=== PATIENT | female | born 1985 | race Caucasian/White ===

== ENCOUNTER → 2017-01-31 | Outpatient (CLI) | payer BC ==
--- NOTE | 2017-01-31 13:22 | KCIC ---
Ultrasound pelvis with transvaginal Indication: Right-sided pelvic pain. Transabdominal and transvaginal pelvic sonography was performed. The uterus measures 8.5 x 4.0 x 5.3 centimeters. The endometrium is 5 millimeters in thickness. There are small cervical nabothian cysts present. No other uterine mass is identified. The right ovary measures 3.1 x 2.2 x 3.4 centimeters and the left ovary measures 3.5 x 2.5 x 2.7 centimeters. There is blood flow to both ovaries. No adnexal mass or free fluid is identified. Impression: Unremarkable transabdominal and transvaginal pelvic ultrasound. Electronically signed by: Milton Rae MD (Jan 31, 2017 13:21:06)
== END | disposition home or self-care (01) ==
LOC: KCIC US 10:37
PROVIDERS: ATTEND Obstetrics & Gynecology
DX: R10.2 Pelvic and perineal pain (principal)
CPT/HCPCS: 76830; 76856

== ENCOUNTER 2020-03-09 14:47 | Inpatient (IN) | payer BC ==
[~2020-03-09] VITALS: Ht 172.7 cm; Wt 118.0 kg
--- NOTE | 2020-03-09 15:12 | PHYS DOC ---
General Adult EDM: Chief Complaint: CELLULITIS HPI: HPI: Patient is a 34 year old female who presented to ER today for evaluation of a wound on her abdominal area seen since 5 days ago. Patient denies any nausea vomiting, no fever. Patient denies being bitten by anything. Patient denies any history of diabetes, no history of hypertension. Review of Systems: Review of Systems: Constitutional: Denies fever or chills. [] Eyes: Denies change in visual acuity. [] HENT: Denies nasal congestion or sore throat. [] Respiratory: Denies cough or shortness of breath. [] Cardiovascular: Denies chest pain or edema. [] GI: Denies abdominal pain, nausea, vomiting, bloody stools or diarrhea. [] : Denies dysuria. [] Musculoskeletal: Denies back pain or joint pain. [] Integument: Positive for a wound on right side abdomen Neurologic: Denies headache, focal weakness or sensory changes. [] Endocrine: Denies polyuria or polydipsia. [] Lymphatic: Denies swollen glands. [] Psychiatric: Denies depression or anxiety. [] Heart Score: Risk Factors: Risk Factors: DM, Current or recent (<one month) smoker, HTN, HLP, family history of CAD, obesity. Risk Scores: Score 0 - 3: 2.5% MACE over next 6 weeks - Discharge Home Score 4 - 6: 20.3% MACE over next 6 weeks - Admit for Clinical Observation Score 7 - 10: 72.7% MACE over next 6 weeks - Early Invasive Strategies Allergies: Allergies: Allergies Coded Allergies Type Severity Reaction Last Updated Verified No Known Drug Allergies 03/09/20 No Physical Exam: PE: Constitutional: Well developed, well nourished, no acute distress, non-toxic appearance. [] HENT: Normocephalic, atraumatic, bilateral external ears normal, oropharynx moist, no oral exudates, nose normal. [] Eyes: PERRLA, EOMI, conjunctiva normal, no discharge. [] Neck: Normal range of motion, no tenderness, supple, no stridor. [] Cardiovascular:Heart rate regular rhythm, no murmur [] Lungs & Thorax: Bilateral breath sounds clear to auscultation [] Abdomen: Bowel sounds normal, soft, no tenderness, no masses, no pulsatile masses. [] Skin: Warm, dry, 13 CM BY 12 CM INDURATED, ERYTHEMATOUS LESION ON RIGHT MIDDLE ABDOMINAL WALL AREA WITH CENTRAL OPENING WITH PURULENT DRAINAGE. Back: No tenderness, no CVA tenderness. [] Extremities: No tenderness, no cyanosis, no clubbing, ROM intact, no edema. [] Neurologic: Alert and oriented X 3, normal motor function, normal sensory func tion, no focal deficits noted. [] Psychologic: Affect normal, judgement normal, mood normal. [] EKG: EKG: [] Radiology/Procedures: Radiology/Procedures: [] Course & Med Decision Making: Course & Med Decision Making Pertinent Labs and Imaging studies reviewed. (See chart for details) [] Dragon Disclaimer: Dragon Disclaimer: This electronic medical record was generated, in whole or in part, using a voice recognition dictation system. Departure Departure Impression: Primary Impression: Abdominal abscess Additional Impression: Cellulitis Disposition: ADMITTED INPATIENT Admitting Physician: GABI (DR. BRANTLEY) Condition: STABLE Referrals: NO PCP (PCP) ARMIN FITCH DO Mar 09, 2020 15:12
[2020-03-09 15:15] LABS: BASO % 1 % (0-3); EOS # 0.1 x10^3/uL (0.0-0.7); EOS % 1 % (0-3); HEMATOCRIT 38.8 % (36.0-47.0); HEMOGLOBIN 13.2 g/dL (12.0-15.5); LYMPH # 1.3 x10^3/uL (1.0-4.8); LYMPH % 13 % (24-48); MEAN CORPUSCULAR HEMOGLOBIN 26 pg (25-35); MEAN CORPUSCULAR HGB CONC 34 g/dL (31-37); MEAN CORPUSCULAR VOLUME 76 fL (79-100); MONO # 0.6 x10^3/uL (0.0-1.1); MONO % 6 % (0-9); NEUT # 7.8 x10^3/uL (1.8-7.7); NEUT % 79 % (31-73); PLATELET COUNT 316 x10^3/uL (140-400); RED BLOOD COUNT 5.09 x10^6/uL (3.50-5.40); RED CELL DISTRIBUTION WIDTH 15.3 % (11.5-14.5); WHITE BLOOD COUNT 9.9 x10^3/uL (4.0-11.0)
[2020-03-09 15:27] LABS: CALCIUM 8.9 mg/dL (8.5-10.1); CREATININE 0.8 mg/dL (0.6-1.0); GFR 82.1; POTASSIUM 3.8 mmol/L (3.5-5.1)
[2020-03-09 15:29] LABS: ALBUMIN 3.2 g/dL (3.4-5.0); ALBUMIN/GLOBULIN RATIO 0.7 (1.0-1.7); TOTAL BILIRUBIN 0.3 mg/dL (0.2-1.0); TOTAL PROTEIN 8.1 g/dL (6.4-8.2)
[2020-03-09] MEDS ORDERED: PIP/TAZO PER PHARMACY MC PRN (15:30)
[2020-03-09 15:37] LABS: BILIRUBIN,URINE SMALL (NEG); CLARITY,URINE CLOUDY; COLOR,URINE AMBER; NITRITE,URINE NEGATIVE (NEG); PH,URINE 8.5 (<5.0-8.0); PROTEIN,URINE 100 mg/dL (NEG-TRACE)
[2020-03-09 15:45] LABS: SQUAMOUS EPITHELIAL CELL,UR MANY /LPF
[2020-03-09] MEDS ORDERED: PIPERACILLIN/TAZOBACTAM 3.375 GM in IV NORMAL SALINE 50ML 50 ML IV ONE (15:45)
[2020-03-09 15:46] LABS: BACTERIA,URINE FEW /HPF (0-FEW)
[2020-03-09 15:47] LABS: AMORPHOUS SEDIMENT,UR PRESENT /HPF; RBC,URINE OCC /HPF (0-2)
[2020-03-09] MEDS ORDERED: VANCOMYCIN 2 GM in IV NORMAL SALINE 500ML BAG 500 ML IV ONE (16:00)
[2020-03-09] MEDS: ONDANSETRON PF 4 MG/2 ML VIAL. IV PRN (16:17)
[2020-03-09] MEDS: MORPHINE SULFATE 4 MG/ML VIAL. IV PRN ×2 (16:18→23:37)
[2020-03-09] MEDS: VANCOMYCIN PER PHARMACY MC PRN (16:38)
--- NOTE | 2020-03-09 16:48 | NUR ---
Pharmacy Vancomycin Dosing Note S:Consulted to monitor and dose vancomycin started 03/09/20. O:DAMARIS MONTIEL is a 34 year old F with Abscess . Height: 5 feet, 8 inches Weight: 117.7 kg [place] Body Weight: 63.90 Adjusted Body Weight: 85.42 Dosing Weight: Actual Other Antibiotics: Zosyn 3.375gm IVPB q6hrs LABS: Last BUN: 12 Last Creatinine: 0.8 Creatinine Clearance: 133.6 mL/min Last WBC: 9.9 Last Procalcitonin: Tmax (past 24 hours): 99.5 Microbiology: I/O: Drug Levels: Last level: on at Last dose given 03/09/20 at 1543 Vancomycin Dosing: Loading Dose: 2000 mg x1 Dosing Weight: Actual Target Trough: A: Based on weight and CrCl: P: 1. Vancomycin 2000mg, followed by Vancomycin 1500 mg IV q8h. 2. Follow up Trough level on 03/09/20 at 1530. 3. Pharmacy will continue to monitor, follow and adjust therapy as needed. Yair Alejo [facility], 03/09/20 [id number]
[2020-03-09 17:00] VITALS: BP 173/105
[2020-03-09] MEDS ORDERED: NORG1TAB6 PO (17:57)
--- NOTE | 2020-03-09 18:00 | NUR ---
Pt arrived on unit at approx 1645 by wheelchair. Pt up in bed, rating pain at a 6 in the lower abdomen. Vancomycin currently running. Regular food tray ordered. Will assume care of this pt and monitor closely.
--- NOTE | 2020-03-09 18:10 | NUR ---
Per ANASTASIYA Claros in ER, culture of pt's abdominal abscess was collected in the ER. This RN collected specimen in the computer.
--- NOTE | 2020-03-09 18:42 | NUR ---
Pt's BP 173/105 upon admission. This RN paged Dr. Tello. Awaiting orders.
[2020-03-09 19:00] VITALS: BP 180/108
[2020-03-09] MEDS: amLODIPine BESYLATE 10 MG TABLET PO SCH (21:05)
[2020-03-09 23:00] VITALS: BP 154/81
[2020-03-09] MEDS: PIPERACILLIN/TAZOBACTAM 3.375 GM in IV NORMAL SALINE 50ML 50 ML IV SCH (23:32)
--- NOTE | 2020-03-09 23:53 | HP ---
ADMIT DATE: 03/09/2020 CHIEF COMPLAINT: Abdominal wall abscess. HISTORY OF PRESENT ILLNESS: The patient is a pleasant 34-year-old female who presented with a right sided abdominal wall abscess. I discussed the case with ER physician. We are going to admit the patient and consult the wound care team. PAST MEDICAL HISTORY: Benign. ALLERGIES: None. FAMILY HISTORY: Diabetes. SOCIAL HISTORY: She does not drink, smoke or take drugs. She is a [id number] mom. MEDICATIONS: Reviewed, please refer to the MRAD. REVIEW OF SYSTEMS: GENERAL: No history of weight change, weakness or fevers. SKIN: No bruising, hair changes or rashes. EYES: No blurred, double or loss of vision. NOSE AND THROAT: No history of nosebleeds, hoarseness or sore throat. HEART: No history of palpitations, chest pain or shortness of breath on exertion. LUNGS: Denies cough, hemoptysis, wheezing or shortness of breath. GASTROINTESTINAL: The patient complains of abdominal wall abscess. GENITOURINARY: No history of frequency, urgency, hesitancy or nocturia. NEUROLOGIC: Denies history of numbness, tingling, tremor or weakness. PSYCHIATRIC: No history of panic, anxiety or depression. ENDOCRINE: No history of heat or cold intolerance, polyuria or polydipsia. EXTREMITIES: Denies muscle weakness, joint pain, pain on walking or stiffness. PHYSICAL EXAMINATION: VITALS: Within normal limits and are stable. GENERAL: No apparent distress. Alert and oriented. HEENT: Normal cephalic atraumatic, external auditory canals are patent EYES: Extraocular muscles are intact, pupils are equally round and reactive to light and accommodation MUSCULOSKELETAL: Well developed, well nourished, good range of motion ENDOCRINE: No thyromegaly was palpated LYMPHATICS: No cervical chain or axillary nodes were noted HEMATOPOIETIC: No bruising NECK: Supple, no JVD, no thyromegaly was noted. LUNGS: Clear to auscultation in all lung samson without rhonchi or wheezing. HEART: RRR, S1, S2 present. Peripheral pulses intact, no obvious murmurs were noted. ABDOMEN: She has a small abscess on her right mid abdomen. EXTREMITIES: Without any cyanosis, clubbing, or edema. Pedal pulses intact, Homans sign is negative. NEUROLOGIC: Normal speech, normal tone. A & O x3, moves all extremities, no obvious focal deficits. PSYCHIATRIC: Normal affect, normal mood. Stable. SKIN: No ulcerations or rashes, good skin turgor, no jaundice. VASCULAR: Good capillary refill, neurovascular bundle appears to be intact. ASSESSMENT AND PLAN: Right-sided mid abdominal wall abscess. The patient will be admitted. We will start IV antibiotics, home meds, DVT prophylaxis. Full code. Consult wound care team. EDNA BRANTLEY DO DR: PEDRO/arti JOB#: [id number] / [id number]
[2020-03-10] MEDS: VANCOMYCIN 1.5 GM in IV NORMAL SALINE 500ML BAG 500 ML IV SCH ×3 (00:42→16:20)
[2020-03-10 03:00] VITALS: BP 157/89
[2020-03-10] MEDS: PIPERACILLIN/TAZOBACTAM 3.375 GM in IV NORMAL SALINE 50ML 50 ML IV SCH ×4 (05:48→23:40)
[2020-03-10] MEDS: ONDANSETRON PF 4 MG/2 ML VIAL. IV PRN (05:57)
--- NOTE | 2020-03-10 06:11 | NUR ---
Pt requesting dressing change because wound "smells bad." Small amount of bloody drainage noted. Wound cleaned with wound wash and new foam dressing applied. Area of infection looks larger from beginning of shift, with new small fluid-filled blisters. Education regarding wound care and infection provided. Will monitor. Addendum: 03/10/20 at 0616 by KAYLEEN PERSON RN Amended: Links added.
[2020-03-10 07:44] VITALS: BP 146/104
[2020-03-10 08:48] LABS: BASO # 0.1 x10^3/uL (0.0-0.2); BASO % 1 % (0-3); EOS # 0.1 x10^3/uL (0.0-0.7); EOS % 1 % (0-3); HEMATOCRIT 36.8 % (36.0-47.0); HEMOGLOBIN 12.1 g/dL (12.0-15.5); LYMPH # 0.9 x10^3/uL (1.0-4.8); LYMPH % 10 % (24-48); MEAN CORPUSCULAR HEMOGLOBIN 25 pg (25-35); MEAN CORPUSCULAR HGB CONC 33 g/dL (31-37); MEAN CORPUSCULAR VOLUME 77 fL (79-100); MONO # 0.4 x10^3/uL (0.0-1.1); MONO % 4 % (0-9); NEUT # 8.4 x10^3/uL (1.8-7.7); NEUT % 84 % (31-73); PLATELET COUNT 283 x10^3/uL (140-400); RED BLOOD COUNT 4.79 x10^6/uL (3.50-5.40); RED CELL DISTRIBUTION WIDTH 15.1 % (11.5-14.5)
[2020-03-10] MEDS: amLODIPine BESYLATE 10 MG TABLET PO SCH (08:50)
[2020-03-10] MEDS: MORPHINE SULFATE 4 MG/ML VIAL. IV PRN ×2 (09:02→14:29)
[2020-03-10 09:19] LABS: CALCIUM 8.4 mg/dL (8.5-10.1); CREATININE 0.9 mg/dL (0.6-1.0); GFR 71.7
[2020-03-10 09:20] LABS: CHOLESTEROL/HDL RATIO 2.6
[2020-03-10 09:33] LABS: FREE T4 1.37 ng/dL (0.76-1.46); THYROID STIM HORMONE (TSH) 2.022 uIU/mL (0.358-3.74)
--- NOTE | 2020-03-10 11:02 | PDOC ---
Infectious Disease Note Vital Sign Vital Signs Vital Signs Date Time Temp Pulse Resp B/P (MAP) Pulse Ox O2 Delivery O2 Flow Rate FiO2 03/10/20 09:34 95 Room Air 03/10/20 08:50 93 146/104 03/10/20 07:44 98.9 18 98.9 Labs Lab Laboratory Tests Test 03/09/20 15:08 03/09/20 15:10 03/09/20 15:33 03/10/20 08:15 White Blood Count 9.9 x10^3/uL (4.0-11.0) 10.0 x10^3/uL (4.0-11.0) Red Blood Count 5.09 x10^6/uL (3.50-5.40) 4.79 x10^6/uL (3.50-5.40) Hemoglobin 13.2 g/dL (12.0-15.5) 12.1 g/dL (12.0-15.5) Hematocrit 38.8 % (36.0-47.0) 36.8 % (36.0-47.0) Mean Corpuscular Volume 76 fL (79-100) 77 fL (79-100) Mean Corpuscular Hemoglobin 26 pg (25-35) 25 pg (25-35) Mean Corpuscular Hemoglobin Concent 34 g/dL (31-37) 33 g/dL (31-37) Red Cell Distribution Width 15.3 % (11.5-14.5) 15.1 % (11.5-14.5) Platelet Count 316 x10^3/uL (140-400) 283 x10^3/uL (140-400) Neutrophils (%) (Auto) 79 % (31-73) 84 % (31-73) Lymphocytes (%) (Auto) 13 % (24-48) 10 % (24-48) Monocytes (%) (Auto) 6 % (0-9) 4 % (0-9) Eosinophils (%) (Auto) 1 % (0-3) 1 % (0-3) Basophils (%) (Auto) 1 % (0-3) 1 % (0-3) Neutrophils # (Auto) 7.8 x10^3/uL (1.8-7.7) 8.4 x10^3/uL (1.8-7.7) Lymphocytes # (Auto) 1.3 x10^3/uL (1.0-4.8) 0.9 x10^3/uL (1.0-4.8) Monocytes # (Auto) 0.6 x10^3/uL (0.0-1.1) 0.4 x10^3/uL (0.0-1.1) Eosinophils # (Auto) 0.1 x10^3/uL (0.0-0.7) 0.1 x10^3/uL (0.0-0.7) Basophils # (Auto) 0.0 x10^3/uL (0.0-0.2) 0.1 x10^3/uL (0.0-0.2) Sodium Level 141 mmol/L (136-145) 139 mmol/L (136-145) Potassium Level 3.8 mmol/L (3.5-5.1) 4.0 mmol/L (3.5-5.1) Chloride Level 103 mmol/L (98-107) 103 mmol/L (98-107) Carbon Dioxide Level 28 mmol/L (21-32) 26 mmol/L (21-32) Anion Gap 10 (6-14) 10 (6-14) Blood Urea Nitrogen 12 mg/dL (7-20) 12 mg/dL (7-20) Creatinine 0.8 mg/dL (0.6-1.0) 0.9 mg/dL (0.6-1.0) Estimated GFR (Cockcroft-Gault) 82.1 71.7 BUN/Creatinine Ratio 15 (6-20) Glucose Level 164 mg/dL (70-99) 159 mg/dL (70-99) Calcium Level 8.9 mg/dL (8.5-10.1) 8.4 mg/dL (8.5-10.1) Total Bilirubin 0.3 mg/dL (0.2-1.0) Aspartate Amino Transf (AST/SGOT) 16 U/L (15-37) Alanine Aminotransferase (ALT/SGPT) 22 U/L (14-59) Alkaline Phosphatase 157 U/L (46-116) Total Protein 8.1 g/dL (6.4-8.2) Albumin 3.2 g/dL (3.4-5.0) Albumin/Globulin Ratio 0.7 (1.0-1.7) Urine Collection Type Unknown Urine Color Nandini Urine Clarity Cloudy Urine pH 8.5 (<5.0-8.0) Urine Specific Point >=1.030 (1.000-1.030) Urine Protein 100 mg/dL (NEG-TRACE) Urine Glucose (UA) Negative mg/dL (NEG) Urine Ketones (Stick) Trace mg/dL (NEG) Urine Blood Negative (NEG) Urine Nitrite Negative (NEG) Urine Bilirubin Small (NEG) Urine Urobilinogen Dipstick 1.0 mg/dL (0.2 mg/dL) Urine Leukocyte Esterase Small (NEG) Urine RBC Occ /HPF (0-2) Urine WBC 1-4 /HPF (0-4) Urine Squamous Epithelial Cells Many /LPF Urine Amorphous Sediment Present /HPF Urine Bacteria Few /HPF (0-FEW) Urine Mucus Marked /LPF Bedside Urine HCG, Qualitative Hcg negative (Negative) Triglycerides Level 89 mg/dL (0-150) Cholesterol Level 139 mg/dL (0-200) LDL Cholesterol, Calculated 68 mg/dL (0-100) VLDL Cholesterol, Calculated 18 mg/dL (0-40) Non-HDL Cholesterol Calculated 86 mg/dL (0-129) HDL Cholesterol 53 mg/dL (40-60) Cholesterol/HDL Ratio 2.6 Thyroid Stimulating Hormone (TSH) 2.022 uIU/mL (0.358-3.74) Free Thyroxine 1.37 ng/dL (0.76-1.46) Free Triiodothyronine (T3) pg/mL 3.05 pg/mL (2.18-3.98) Objective Assessment pt seen, consult dictated Plan Plan of Care / SCOUT FITZGERALD MD Mar 10, 2020 11:02
[2020-03-10] MEDS: PROCHLORPERAZINE 10 MG/2 ML VIAL. IV PRN ×2 (11:14→18:17)
--- NOTE | 2020-03-10 11:37 | NUR ---
SS following for discharge planning. SS reviewed pt chart and discussed with pt RN. Pt is from home with spouse and is currently on room air. Pt on IV Vancomycin and IV Zosyn. SS will continue to follow for discharge planning.
[2020-03-10 11:56] VITALS: BP 163/96
--- NOTE | 2020-03-10 12:54 | CONS ---
DATE OF CONSULTATION: 03/10/2020 REQUESTING PHYSICIAN: Dr. Kathie Tello. REASON FOR CONSULTATION: Abdominal wall abscess. HISTORY OF PRESENT ILLNESS: This is a 34-year-old female with no significant past medical history who presented with abdominal wall redness, swelling and some drainage. The patient is diagnosed having abdominal wall abscess. The patient has been put on Zosyn and vancomycin and consult has been requested. The patient denies any trauma. Denies any injections. Denies any other unusual thing. The patient has had infection post in 2018. Otherwise, she has not had any issues with the infection. PAST MEDICAL HISTORY: Positive for , otherwise unremarkable. HOME MEDICATIONS: The patient does not take any medication at home. FAMILY HISTORY: She does have family history of diabetes, but she does not know whether she has diabetes or not. SOCIAL HISTORY: Negative for smoking, alcohol, drug use. ALLERGIES: No known drug allergies. CURRENT MEDICATIONS: Reviewed. The patient is on vancomycin and Zosyn. REVIEW OF SYSTEMS: As per HPI. All other systems reviewed and are negative. PHYSICAL EXAMINATION: GENERAL: Alert and oriented female, not in any distress. VITAL SIGNS: Stable with a T-max 99.5. Rest of vital signs stable. HEENT: NAD. NECK: Supple. No JVP, no lymphadenopathy. LUNGS: Clear. HEART: S1, S2 regular. ABDOMEN: Soft. No deep tenderness. No organomegaly. SKIN: Abdominal wall has a large area of cellulitis with induration, tenderness and opening with ray pus coming out. Rest of the skin examination is unremarkable. NEUROLOGIC: The patient is alert, awake and appropriate. No focal neurologic deficit. LABORATORY DATA: White count is 10,000. BUN and creatinine are normal. Liver functions are normal. Her glucose is 164 and 159, probably at least borderline diabetic. Urinalysis is unremarkable. IMPRESSION: 1. Abdominal wall cellulitis. 2. Abdominal wall abscess, skin and soft tissue infection, most likely to be staph. 3. Low-grade fever. 4. Probable borderline diabetic. 5. Obesity. RECOMMENDATIONS: Recommend to continue vancomycin and Zosyn. Cultures have been taken. Supportive care. May need to have an ultrasound to see the pocket inside to be able to see whether we need surgical consultation. We will get an ultrasound done, supportive care and also get hemoglobin A1c. We will continue to follow. Thank you very much, Dr. Tello, for giving me the opportunity to participate in this patient's care. SCOUT FITZGERALD MD DR: ZELDA/arti JOB#: [id number] / [id number]
--- NOTE | 2020-03-10 13:16 | RAD ---
EXT NON VASC RIGHT History:Reason: abd wall abscess / Spl. Instructions: / History: Comparison: None Technique: Sonographic examination of the anterior abdominal wall right lower quadrant. Findings: Complex fluid collection within the anterior abdominal wall subcutaneous tissues measures 2.5 x 2.4 x 1.3 cm. There is adjacent subcutaneous edema. Impression: 1. Complex fluid collection within the anterior right lower quadrant abdominal wall, concerning for abscess. Electronically signed by: Brayden Florence DO (03/10/2020 1:13 PM) [facility]
--- NOTE | 2020-03-10 13:46 | PDOC ---
PROGRESS NOTES Chief Complaint Chief Complaint Abdominal wall cellulitis, MRSA most likely Abdominal wall abscess, Obesity with a BMI of 39 Hyperglycemia will rule out DM Plan: continue with antibiotics will follow cultures appreciate ID resourcing consultant recommendations. DVT prophylaxis: Lovenox History of Present Illness History of Present Illness Nauseous, but somewhat better compared to admission Vitals Vitals Vital Signs Date Time Temp Pulse Resp B/P (MAP) Pulse Ox O2 Delivery O2 Flow Rate FiO2 03/10/20 11:56 98.5 87 18 163/96 (118) 95 Room Air 98.5 Physical Exam General: Alert, Oriented X3, Cooperative, No acute distress Heart: Regular rate, Normal S1, Normal S2 Lungs: Clear, Wheezing, Crackles Abdomen: Normal bowel sounds, Soft, No tenderness Extremities: No clubbing Skin: No rashes, No breakdown Labs LABS Laboratory Tests Test 03/09/20 15:08 03/09/20 15:10 03/09/20 15:33 03/10/20 08:15 White Blood Count 9.9 x10^3/uL (4.0-11.0) 10.0 x10^3/uL (4.0-11.0) Red Blood Count 5.09 x10^6/uL (3.50-5.40) 4.79 x10^6/uL (3.50-5.40) Hemoglobin 13.2 g/dL (12.0-15.5) 12.1 g/dL (12.0-15.5) Hematocrit 38.8 % (36.0-47.0) 36.8 % (36.0-47.0) Mean Corpuscular Volume 76 fL (79-100) 77 fL (79-100) Mean Corpuscular Hemoglobin 26 pg (25-35) 25 pg (25-35) Mean Corpuscular Hemoglobin Concent 34 g/dL (31-37) 33 g/dL (31-37) Red Cell Distribution Width 15.3 % (11.5-14.5) 15.1 % (11.5-14.5) Platelet Count 316 x10^3/uL (140-400) 283 x10^3/uL (140-400) Neutrophils (%) (Auto) 79 % (31-73) 84 % (31-73) Lymphocytes (%) (Auto) 13 % (24-48) 10 % (24-48) Monocytes (%) (Auto) 6 % (0-9) 4 % (0-9) Eosinophils (%) (Auto) 1 % (0-3) 1 % (0-3) Basophils (%) (Auto) 1 % (0-3) 1 % (0-3) Neutrophils # (Auto) 7.8 x10^3/uL (1.8-7.7) 8.4 x10^3/uL (1.8-7.7) Lymphocytes # (Auto) 1.3 x10^3/uL (1.0-4.8) 0.9 x10^3/uL (1.0-4.8) Monocytes # (Auto) 0.6 x10^3/uL (0.0-1.1) 0.4 x10^3/uL (0.0-1.1) Eosinophils # (Auto) 0.1 x10^3/uL (0.0-0.7) 0.1 x10^3/uL (0.0-0.7) Basophils # (Auto) 0.0 x10^3/uL (0.0-0.2) 0.1 x10^3/uL (0.0-0.2) Sodium Level 141 mmol/L (136-145) 139 mmol/L (136-145) Potassium Level 3.8 mmol/L (3.5-5.1) 4.0 mmol/L (3.5-5.1) Chloride Level 103 mmol/L (98-107) 103 mmol/L (98-107) Carbon Dioxide Level 28 mmol/L (21-32) 26 mmol/L (21-32) Anion Gap 10 (6-14) 10 (6-14) Blood Urea Nitrogen 12 mg/dL (7-20) 12 mg/dL (7-20) Creatinine 0.8 mg/dL (0.6-1.0) 0.9 mg/dL (0.6-1.0) Estimated GFR (Cockcroft-Gault) 82.1 71.7 BUN/Creatinine Ratio 15 (6-20) Glucose Level 164 mg/dL (70-99) 159 mg/dL (70-99) Calcium Level 8.9 mg/dL (8.5-10.1) 8.4 mg/dL (8.5-10.1) Total Bilirubin 0.3 mg/dL (0.2-1.0) Aspartate Amino Transf (AST/SGOT) 16 U/L (15-37) Alanine Aminotransferase (ALT/SGPT) 22 U/L (14-59) Alkaline Phosphatase 157 U/L (46-116) Total Protein 8.1 g/dL (6.4-8.2) Albumin 3.2 g/dL (3.4-5.0) Albumin/Globulin Ratio 0.7 (1.0-1.7) Urine Collection Type Unknown Urine Color Nandini Urine Clarity Cloudy Urine pH 8.5 (<5.0-8.0) Urine Specific [place] >=1.030 (1.000-1.030) Urine Protein 100 mg/dL (NEG-TRACE) Urine Glucose (UA) Negative mg/dL (NEG) Urine Ketones (Stick) Trace mg/dL (NEG) Urine Blood Negative (NEG) Urine Nitrite Negative (NEG) Urine Bilirubin Small (NEG) Urine Urobilinogen Dipstick 1.0 mg/dL (0.2 mg/dL) Urine Leukocyte Esterase Small (NEG) Urine RBC Occ /HPF (0-2) Urine WBC 1-4 /HPF (0-4) Urine Squamous Epithelial Cells Many /LPF Urine Amorphous Sediment Present /HPF Urine Bacteria Few /HPF (0-FEW) Urine Mucus Marked /LPF Bedside Urine HCG, Qualitative Hcg negative (Negative) Triglycerides Level 89 mg/dL (0-150) Cholesterol Level 139 mg/dL (0-200) LDL Cholesterol, Calculated 68 mg/dL (0-100) VLDL Cholesterol, Calculated 18 mg/dL (0-40) Non-HDL Cholesterol Calculated 86 mg/dL (0-129) HDL Cholesterol 53 mg/dL (40-60) Cholesterol/HDL Ratio 2.6 Thyroid Stimulating Hormone (TSH) 2.022 uIU/mL (0.358-3.74) Free Thyroxine 1.37 ng/dL (0.76-1.46) Free Triiodothyronine (T3) pg/mL 3.05 pg/mL (2.18-3.98) Assessment and Plan Assessmemt and Plan Problems Medical Problems: (1) Abdominal abscess Status: Acute (2) Cellulitis Status: Acute Comment Review of Relevant I have reviewed the following items marjorie (where applicable) has been applied. Labs Laboratory Tests Test 03/09/20 15:08 03/09/20 15:10 03/09/20 15:33 03/10/20 08:15 White Blood Count 9.9 x10^3/uL (4.0-11.0) 10.0 x10^3/uL (4.0-11.0) Red Blood Count 5.09 x10^6/uL (3.50-5.40) 4.79 x10^6/uL (3.50-5.40) Hemoglobin 13.2 g/dL (12.0-15.5) 12.1 g/dL (12.0-15.5) Hematocrit 38.8 % (36.0-47.0) 36.8 % (36.0-47.0) Mean Corpuscular Volume 76 fL (79-100) 77 fL (79-100) Mean Corpuscular Hemoglobin 26 pg (25-35) 25 pg (25-35) Mean Corpuscular Hemoglobin Concent 34 g/dL (31-37) 33 g/dL (31-37) Red Cell Distribution Width 15.3 % (11.5-14.5) 15.1 % (11.5-14.5) Platelet Count 316 x10^3/uL (140-400) 283 x10^3/uL (140-400) Neutrophils (%) (Auto) 79 % (31-73) 84 % (31-73) Lymphocytes (%) (Auto) 13 % (24-48) 10 % (24-48) Monocytes (%) (Auto) 6 % (0-9) 4 % (0-9) Eosinophils (%) (Auto) 1 % (0-3) 1 % (0-3) Basophils (%) (Auto) 1 % (0-3) 1 % (0-3) Neutrophils # (Auto) 7.8 x10^3/uL (1.8-7.7) 8.4 x10^3/uL (1.8-7.7) Lymphocytes # (Auto) 1.3 x10^3/uL (1.0-4.8) 0.9 x10^3/uL (1.0-4.8) Monocytes # (Auto) 0.6 x10^3/uL (0.0-1.1) 0.4 x10^3/uL (0.0-1.1) Eosinophils # (Auto) 0.1 x10^3/uL (0.0-0.7) 0.1 x10^3/uL (0.0-0.7) Basophils # (Auto) 0.0 x10^3/uL (0.0-0.2) 0.1 x10^3/uL (0.0-0.2) Sodium Level 141 mmol/L (136-145) 139 mmol/L (136-145) Potassium Level 3.8 mmol/L (3.5-5.1) 4.0 mmol/L (3.5-5.1) Chloride Level 103 mmol/L (98-107) 103 mmol/L (98-107) Carbon Dioxide Level 28 mmol/L (21-32) 26 mmol/L (21-32) Anion Gap 10 (6-14) 10 (6-14) Blood Urea Nitrogen 12 mg/dL (7-20) 12 mg/dL (7-20) Creatinine 0.8 mg/dL (0.6-1.0) 0.9 mg/dL (0.6-1.0) Estimated GFR (Cockcroft-Gault) 82.1 71.7 BUN/Creatinine Ratio 15 (6-20) Glucose Level 164 mg/dL (70-99) 159 mg/dL (70-99) Calcium Level 8.9 mg/dL (8.5-10.1) 8.4 mg/dL (8.5-10.1) Total Bilirubin 0.3 mg/dL (0.2-1.0) Aspartate Amino Transf (AST/SGOT) 16 U/L (15-37) Alanine Aminotransferase (ALT/SGPT) 22 U/L (14-59) Alkaline Phosphatase 157 U/L (46-116) Total Protein 8.1 g/dL (6.4-8.2) Albumin 3.2 g/dL (3.4-5.0) Albumin/Globulin Ratio 0.7 (1.0-1.7) Urine Collection Type Unknown Urine Color Nandini Urine Clarity Cloudy Urine pH 8.5 (<5.0-8.0) Urine Specific [place] >=1.030 (1.000-1.030) Urine Protein 100 mg/dL (NEG-TRACE) Urine Glucose (UA) Negative mg/dL (NEG) Urine Ketones (Stick) Trace mg/dL (NEG) Urine Blood Negative (NEG) Urine Nitrite Negative (NEG) Urine Bilirubin Small (NEG) Urine Urobilinogen Dipstick 1.0 mg/dL (0.2 mg/dL) Urine Leukocyte Esterase Small (NEG) Urine RBC Occ /HPF (0-2) Urine WBC 1-4 /HPF (0-4) Urine Squamous Epithelial Cells Many /LPF Urine Amorphous Sediment Present /HPF Urine Bacteria Few /HPF (0-FEW) Urine Mucus Marked /LPF Bedside Urine HCG, Qualitative Hcg negative (Negative) Triglycerides Level 89 mg/dL (0-150) Cholesterol Level 139 mg/dL (0-200) LDL Cholesterol, Calculated 68 mg/dL (0-100) VLDL Cholesterol, Calculated 18 mg/dL (0-40) Non-HDL Cholesterol Calculated 86 mg/dL (0-129) HDL Cholesterol 53 mg/dL (40-60) Cholesterol/HDL Ratio 2.6 Thyroid Stimulating Hormone (TSH) 2.022 uIU/mL (0.358-3.74) Free Thyroxine 1.37 ng/dL (0.76-1.46) Free Triiodothyronine (T3) pg/mL 3.05 pg/mL (2.18-3.98) Laboratory Tests Test 03/09/20 15:08 03/09/20 15:10 03/09/20 15:33 03/10/20 08:15 White Blood Count 9.9 x10^3/uL (4.0-11.0) 10.0 x10^3/uL (4.0-11.0) Red Blood Count 5.09 x10^6/uL (3.50-5.40) 4.79 x10^6/uL (3.50-5.40) Hemoglobin 13.2 g/dL (12.0-15.5) 12.1 g/dL (12.0-15.5) Hematocrit 38.8 % (36.0-47.0) 36.8 % (36.0-47.0) Mean Corpuscular Volume 76 fL (79-100) 77 fL (79-100) Mean Corpuscular Hemoglobin 26 pg (25-35) 25 pg (25-35) Mean Corpuscular Hemoglobin Concent 34 g/dL (31-37) 33 g/dL (31-37) Red Cell Distribution Width 15.3 % (11.5-14.5) 15.1 % (11.5-14.5) Platelet Count 316 x10^3/uL (140-400) 283 x10^3/uL (140-400) Neutrophils (%) (Auto) 79 % (31-73) 84 % (31-73) Lymphocytes (%) (Auto) 13 % (24-48) 10 % (24-48) Monocytes (%) (Auto) 6 % (0-9) 4 % (0-9) Eosinophils (%) (Auto) 1 % (0-3) 1 % (0-3) Basophils (%) (Auto) 1 % (0-3) 1 % (0-3) Neutrophils # (Auto) 7.8 x10^3/uL (1.8-7.7) 8.4 x10^3/uL (1.8-7.7) Lymphocytes # (Auto) 1.3 x10^3/uL (1.0-4.8) 0.9 x10^3/uL (1.0-4.8) Monocytes # (Auto) 0.6 x10^3/uL (0.0-1.1) 0.4 x10^3/uL (0.0-1.1) Eosinophils # (Auto) 0.1 x10^3/uL (0.0-0.7) 0.1 x10^3/uL (0.0-0.7) Basophils # (Auto) 0.0 x10^3/uL (0.0-0.2) 0.1 x10^3/uL (0.0-0.2) Sodium Level 141 mmol/L (136-145) 139 mmol/L (136-145) Potassium Level 3.8 mmol/L (3.5-5.1) 4.0 mmol/L (3.5-5.1) Chloride Level 103 mmol/L (98-107) 103 mmol/L (98-107) Carbon Dioxide Level 28 mmol/L (21-32) 26 mmol/L (21-32) Anion Gap 10 (6-14) 10 (6-14) Blood Urea Nitrogen 12 mg/dL (7-20) 12 mg/dL (7-20) Creatinine 0.8 mg/dL (0.6-1.0) 0.9 mg/dL (0.6-1.0) Estimated GFR (Cockcroft-Gault) 82.1 71.7 BUN/Creatinine Ratio 15 (6-20) Glucose Level 164 mg/dL (70-99) 159 mg/dL (70-99) Calcium Level 8.9 mg/dL (8.5-10.1) 8.4 mg/dL (8.5-10.1) Total Bilirubin 0.3 mg/dL (0.2-1.0) Aspartate Amino Transf (AST/SGOT) 16 U/L (15-37) Alanine Aminotransferase (ALT/SGPT) 22 U/L (14-59) Alkaline Phosphatase 157 U/L (46-116) Total Protein 8.1 g/dL (6.4-8.2) Albumin 3.2 g/dL (3.4-5.0) Albumin/Globulin Ratio 0.7 (1.0-1.7) Urine Collection Type Unknown Urine Color Nandini Urine Clarity Cloudy Urine pH 8.5 (<5.0-8.0) Urine Specific [place] >=1.030 (1.000-1.030) Urine Protein 100 mg/dL (NEG-TRACE) Urine Glucose (UA) Negative mg/dL (NEG) Urine Ketones (Stick) Trace mg/dL (NEG) Urine Blood Negative (NEG) Urine Nitrite Negative (NEG) Urine Bilirubin Small (NEG) Urine Urobilinogen Dipstick 1.0 mg/dL (0.2 mg/dL) Urine Leukocyte Esterase Small (NEG) Urine RBC Occ /HPF (0-2) Urine WBC 1-4 /HPF (0-4) Urine Squamous Epithelial Cells Many /LPF Urine Amorphous Sediment Present /HPF Urine Bacteria Few /HPF (0-FEW) Urine Mucus Marked /LPF Bedside Urine HCG, Qualitative Hcg negative (Negative) Triglycerides Level 89 mg/dL (0-150) Cholesterol Level 139 mg/dL (0-200) LDL Cholesterol, Calculated 68 mg/dL (0-100) VLDL Cholesterol, Calculated 18 mg/dL (0-40) Non-HDL Cholesterol Calculated 86 mg/dL (0-129) HDL Cholesterol 53 mg/dL (40-60) Cholesterol/HDL Ratio 2.6 Thyroid Stimulating Hormone (TSH) 2.022 uIU/mL (0.358-3.74) Free Thyroxine 1.37 ng/dL (0.76-1.46) Free Triiodothyronine (T3) pg/mL 3.05 pg/mL (2.18-3.98) Medications Current Medications Vancomycin HCl (Vanco Per Pharmacy) 1 each PRN DAILY PRN MC SEE COMMENTS Last administered on 03/09/20at 16:38; Start 03/09/20 at 15:15 Ondansetron HCl (Zofran) 4 mg PRN Q8HRS PRN IV NAUSEA/VOMITING Last administered on 03/10/20at 05:57; Start 03/09/20 at 15:30; Stop 03/10/20 at 15:29 Morphine Sulfate (Morphine Sulfate) 4 mg PRN Q2HR PRN IV PAIN Last administered on 03/10/20at 09:02; Start 03/09/20 at 15:30; Stop 03/10/20 at 15:29 Piperacillin Sod/ Tazobactam Sod (Zosyn Per Pharmacy) 1 each PRN DAILY PRN MC SEE COMMENTS; Start 03/09/20 at 15:30 Vancomycin HCl 2 gm/Sodium Chloride 500 ml @ 250 mls/hr 1X ONCE IV Last administered on 03/09/20at 15:43; Start 03/09/20 at 16:00; Stop 03/09/20 at 17:59; Status DC Piperacillin Sod/ Tazobactam Sod 3.375 gm/Sodium Chloride 50 ml @ 100 mls/hr 1X ONCE IV Last administered on 03/09/20at 15:43; Start 03/09/20 at 15:45; Stop 03/09/20 at 16:14; Status DC Piperacillin Sod/ Tazobactam Sod 3.375 gm/Sodium Chloride 50 ml @ 100 mls/hr Q6HRS IV Last administered on 03/10/20at 12:09; Start 03/09/20 at 23:00 Vancomycin HCl 1.5 gm/Sodium Chloride 500 ml @ 250 mls/hr Q8H IV Last administered on 03/10/20at 09:34; Start 03/10/20 at 00:00 Vancomycin HCl (Vancomycin Trough Level) 1 each 1X ONCE MC ; Start 03/10/20 at 15:30; Stop 03/10/20 at 15:31 Amlodipine Besylate (Norvasc) 10 mg DAILY PO Last administered on 03/10/20at 08:50; Start 03/09/20 at 20:30 Prochlorperazine Edisylate (Compazine) 10 mg PRN Q6HRS PRN IV NAUSEA/VOMITING Last administered on 03/10/20at 11:14; Start 03/10/20 at 10:45 Active Scripts Active Reported Sprintec (Norgestimate-Ethinyl Estradiol) 1 Each Tablet 1 Tab PO DAILY Vitals/I & O Vital Sign - Last 24 Hours 03/09/20 03/09/20 03/09/20 03/09/20 15:14 16:00 16:18 17:00 Temp 99.5 98.2 99.5 98.2 Pulse 120 106 105 Resp 18 15 16 18 B/P (MAP) 202/119 (146) 179/105 (129) 173/105 (127) Pulse Ox 99 97 99 95 O2 Delivery Room Air Room Air Room Air Room Air 03/09/20 03/09/20 03/09/20 03/09/20 17:09 19:00 20:10 21:05 Temp 99.1 99.1 Pulse 105 105 Resp 18 B/P (MAP) 180/108 (132) 180/108 Pulse Ox 97 O2 Delivery Room Air Room Air Room Air 03/09/20 03/10/20 03/10/20 03/10/20 23:00 03:00 07:44 08:00 Temp 98.7 98.0 98.9 98.7 98.0 98.9 Pulse 90 99 93 Resp 18 18 18 B/P (MAP) 154/81 (105) 157/89 (111) 146/104 (118) Pulse Ox 96 97 95 O2 Delivery Room Air Room Air Room Air Room Air 03/10/20 03/10/20 03/10/20 03/10/20 08:50 09:02 09:34 11:56 Temp 98.5 98.5 Pulse 93 87 Resp 18 B/P (MAP) 146/104 163/96 (118) Pulse Ox 95 95 95 O2 Delivery Room Air Room Air Room Air Intake and Output 6/2/20 6/2/20 6/3/20 14:59 22:59 06:59 Intake Total 120 ml Balance 120 ml SUZANNA GREEN MD Mar 10, 2020 13:46
--- NOTE | 2020-03-10 15:00 | NUR ---
Wound Care Wound Type/Assessment: See Wound Assessment. Patient has a right lower abdomen open abscess with cellulitis indurated periwound, with a moderate amount of creamy serosanguineous drainage expressed from opening. The area was cleaned and packed with plain gauze packing and covered with gauze and tape. Treatment Recommendations/Plan: Recommendations of packing with iodoform gauze packing with gauze and tape over, change daily. Called SPD for iodoform gauze at this time. Discharge Recommendations for dressings: Continue with dressings.
[2020-03-10 15:54] VITALS: BP 156/105
[2020-03-10 16:06] LABS: VANC TR 14.4 mcg/mL (10.0-20.0)
[2020-03-10] MEDS: VANCOMYCIN PER PHARMACY MC PRN (16:24)
--- NOTE | 2020-03-10 16:26 | NUR ---
Pharmacy Vancomycin Dosing Note S:Consulted to monitor and dose vancomycin started 03/09/20. O:DAMARIS MONTIEL is a 34 year old F with Abscess . Height: 5 feet, 8 inches Weight: 118.0 kg Gary Body Weight: 63.90 Adjusted Body Weight: 85.54 Dosing Weight: Actual Other Antibiotics: Zosyn 3.375gm IVPB q6hrs LABS: Last BUN: 12 Last Creatinine: 0.9 Creatinine Clearance: 119 mL/min Last WBC: 10.0 Last Procalcitonin: Tmax (past 24 hours): 99.1 Microbiology: GRAM STAIN Final Final GRAM POSITIVE COCCI:MANY I/O: 120/ Drug Levels: Last Trough level: 14.4 on 03/10/20 at 1535 Last dose given 03/10/20 at 0934 Vancomycin Dosing: Loading Dose: 2000 mg x1 Dosing Weight: Actual Target Trough: 15-20 A: Based on trough of 14.4: P: 1. Continue Vancomycin 1500 mg IV q8h. 2. Follow up Trough level as needed. 3. Pharmacy will continue to monitor, follow and adjust therapy as needed. Yair Alejo [facility] [place], 03/10/20 [id number]
[2020-03-10 19:00] VITALS: BP 173/83
[2020-03-10] MEDS ORDERED: MORPHINE SULFATE 2 MG/ML VIAL. IV PRN (20:00)
[2020-03-10] MEDS: LACTOBACILLUS RHAMNOSUS GG 1 CAPSULE. PO SCH (20:30)
[2020-03-10 23:00] VITALS: BP 149/72
[2020-03-11] MEDS: VANCOMYCIN 1.5 GM in IV NORMAL SALINE 500ML BAG 500 ML IV SCH ×3 (00:46→15:46)
[2020-03-11 01:08] LABS: HEMOGLOBIN A1C 6.5 % (4.8-5.6)
[2020-03-11 03:00] VITALS: BP 170/101
[2020-03-11] MEDS: PIPERACILLIN/TAZOBACTAM 3.375 GM in IV NORMAL SALINE 50ML 50 ML IV SCH ×4 (05:34→23:39)
[2020-03-11 07:34] VITALS: BP 175/107
[2020-03-11] MEDS: LACTOBACILLUS RHAMNOSUS GG 1 CAPSULE. PO SCH ×2 (08:40→21:52)
[2020-03-11] MEDS: amLODIPine BESYLATE 10 MG TABLET PO SCH (08:40)
--- NOTE | 2020-03-11 10:24 | PDOC ---
Infectious Disease Note Subjective Subjective No nausea vomiting diarrhea continues to have some pain on the abdominal wall ROS ROS As above Vital Sign Vital Signs Vital Signs Date Time Temp Pulse Resp B/P (MAP) Pulse Ox O2 Delivery O2 Flow Rate FiO2 03/11/20 08:40 89 175/107 03/11/20 08:00 Room Air 03/11/20 07:34 98.1 20 96 98.1 Physical Exam PHYSICAL EXAM GENERAL: Alert and oriented female, not in any distress. VITAL SIGNS: Stable with a T-max 99.5. Rest of vital signs stable. HEENT: NAD. NECK: Supple. No JVP, no lymphadenopathy. LUNGS: Clear. HEART: S1, S2 regular. ABDOMEN: Soft. No deep tenderness. No organomegaly. SKIN: Abdominal wall has a large area of cellulitis with induration, tenderness and opening with ray pus coming out. Rest of the skin examination is unremarkable. NEUROLOGIC: The patient is alert, awake and appropriate. No focal neurologic deficit. Labs Lab Laboratory Tests Test 03/10/20 15:35 Vancomycin Level Trough 14.4 mcg/mL (10.0-20.0) Vancomycin Last Dose Date 03/10/20 Vancomycin Last Dose Time 0800 Micro gram-positive cocci Objective Assessment IMPRESSION: 1. Abdominal wall cellulitis. 2. Abdominal wall abscess, skin and soft tissue infection, most likely to be staph. 3. Low-grade fever. 4. Probable borderline diabetic. 5. Obesity. Plan Plan of Care Continue antibiotics Surgery or IR consult for I&D of the abscess SCOUT FITZGERALD MD Mar 11, 2020 10:24
[2020-03-11] MEDS ORDERED: LIDOCAINE 2% TOPICAL JELLY 5GM TUBE. TP ONE (10:45)
[2020-03-11] MEDS ORDERED: DEXTROSE 50% 25 GM / 50ML DISP.SYRIN. IV PRN (10:45)
[2020-03-11] MEDS: VANCOMYCIN PER PHARMACY MC PRN (11:11)
--- NOTE | 2020-03-11 11:19 | NUR ---
SS following up with discharge planning. SS reviewed pt chart and discussed with pt RN. Pt is currently on room air. Pt on IV Vancomycin and Zosyn. Discharge plan is to home when ready. SS will continue to follow for discharge planning.
[2020-03-11 11:24] VITALS: BP 186/111
[2020-03-11] MEDS: INSULIN LISPRO 300 UNITS/3 ML VIAL. SQ SCH ×2 (12:00→17:00)
[2020-03-11] MEDS: PROCHLORPERAZINE 10 MG/2 ML VIAL. IV PRN (13:48)
--- NOTE | 2020-03-11 13:59 | PDOC ---
PROGRESS NOTES Chief Complaint Chief Complaint Abdominal wall cellulitis, MRSA most likely Abdominal wall abscess, Obesity with a BMI of 39 Hyperglycemia, diabetes mellitus confirmed with hemoglobin A1c of 6.5 Intractable nausea which may be gastroparesis in the setting of diabetes Plan: continue with antibiotics Will try Reglan We will consult interventional radiology for the abdominal abscess will follow cultures appreciate ID device sales consultant recommendations. DVT prophylaxis: Lovenox History of Present Illness History of Present Illness Still nauseous, patient does not give history of early satiety but in light of her hemoglobin A1c most likely she is suffering from gastroparesis. We will do a trial of Reglan Vitals Vitals Vital Signs Date Time Temp Pulse Resp B/P (MAP) Pulse Ox O2 Delivery O2 Flow Rate FiO2 03/11/20 11:24 97.6 102 20 186/111 (136) 95 Room Air 97.6 Physical Exam Physical Exam GENERAL: Alert and oriented female, not in any distress. VITAL SIGNS: Stable with a T-max 99.5. Rest of vital signs stable. HEENT: NAD. NECK: Supple. No JVP, no lymphadenopathy. LUNGS: Clear. HEART: S1, S2 regular. ABDOMEN: Soft. No deep tenderness. No organomegaly. SKIN: Abdominal wall has a large area of cellulitis with induration, tenderness and opening with ray pus coming out. Rest of the skin examination is unremarkable. NEUROLOGIC: The patient is alert, awake and appropriate. No focal neurologic deficit. General: Alert, Oriented X3, Cooperative, No acute distress Heart: Regular rate, Normal S1, Normal S2 Lungs: Clear, Wheezing, Crackles Abdomen: Normal bowel sounds, Soft, No tenderness Extremities: No clubbing Skin: No rashes, No breakdown Labs LABS Laboratory Tests Test 03/10/20 15:35 03/11/20 12:21 Vancomycin Level Trough 14.4 mcg/mL (10.0-20.0) Vancomycin Last Dose Date 03/10/20 Vancomycin Last Dose Time 0800 Glucose (Fingerstick) 118 mg/dL (70-99) Review of Systems Review of Systems Pertinent as per HPI otherwise 14 point review of system is negative Assessment and Plan Assessmemt and Plan Problems Medical Problems: (1) Abdominal abscess Status: Acute (2) Cellulitis Status: Acute Comment Review of Relevant I have reviewed the following items marjorie (where applicable) has been applied. Labs Laboratory Tests Test 03/09/20 15:08 03/09/20 15:10 03/09/20 15:33 03/10/20 08:15 White Blood Count 9.9 x10^3/uL (4.0-11.0) 10.0 x10^3/uL (4.0-11.0) Red Blood Count 5.09 x10^6/uL (3.50-5.40) 4.79 x10^6/uL (3.50-5.40) Hemoglobin 13.2 g/dL (12.0-15.5) 12.1 g/dL (12.0-15.5) Hematocrit 38.8 % (36.0-47.0) 36.8 % (36.0-47.0) Mean Corpuscular Volume 76 fL (79-100) 77 fL (79-100) Mean Corpuscular Hemoglobin 26 pg (25-35) 25 pg (25-35) Mean Corpuscular Hemoglobin Concent 34 g/dL (31-37) 33 g/dL (31-37) Red Cell Distribution Width 15.3 % (11.5-14.5) 15.1 % (11.5-14.5) Platelet Count 316 x10^3/uL (140-400) 283 x10^3/uL (140-400) Neutrophils (%) (Auto) 79 % (31-73) 84 % (31-73) Lymphocytes (%) (Auto) 13 % (24-48) 10 % (24-48) Monocytes (%) (Auto) 6 % (0-9) 4 % (0-9) Eosinophils (%) (Auto) 1 % (0-3) 1 % (0-3) Basophils (%) (Auto) 1 % (0-3) 1 % (0-3) Neutrophils # (Auto) 7.8 x10^3/uL (1.8-7.7) 8.4 x10^3/uL (1.8-7.7) Lymphocytes # (Auto) 1.3 x10^3/uL (1.0-4.8) 0.9 x10^3/uL (1.0-4.8) Monocytes # (Auto) 0.6 x10^3/uL (0.0-1.1) 0.4 x10^3/uL (0.0-1.1) Eosinophils # (Auto) 0.1 x10^3/uL (0.0-0.7) 0.1 x10^3/uL (0.0-0.7) Basophils # (Auto) 0.0 x10^3/uL (0.0-0.2) 0.1 x10^3/uL (0.0-0.2) Sodium Level 141 mmol/L (136-145) 139 mmol/L (136-145) Potassium Level 3.8 mmol/L (3.5-5.1) 4.0 mmol/L (3.5-5.1) Chloride Level 103 mmol/L (98-107) 103 mmol/L (98-107) Carbon Dioxide Level 28 mmol/L (21-32) 26 mmol/L (21-32) Anion Gap 10 (6-14) 10 (6-14) Blood Urea Nitrogen 12 mg/dL (7-20) 12 mg/dL (7-20) Creatinine 0.8 mg/dL (0.6-1.0) 0.9 mg/dL (0.6-1.0) Estimated GFR (Cockcroft-Gault) 82.1 71.7 BUN/Creatinine Ratio 15 (6-20) Glucose Level 164 mg/dL (70-99) 159 mg/dL (70-99) Calcium Level 8.9 mg/dL (8.5-10.1) 8.4 mg/dL (8.5-10.1) Total Bilirubin 0.3 mg/dL (0.2-1.0) Aspartate Amino Transf (AST/SGOT) 16 U/L (15-37) Alanine Aminotransferase (ALT/SGPT) 22 U/L (14-59) Alkaline Phosphatase 157 U/L (46-116) Total Protein 8.1 g/dL (6.4-8.2) Albumin 3.2 g/dL (3.4-5.0) Albumin/Globulin Ratio 0.7 (1.0-1.7) Urine Collection Type Unknown Urine Color Nandini Urine Clarity Cloudy Urine pH 8.5 (<5.0-8.0) Urine Specific [place] >=1.030 (1.000-1.030) Urine Protein 100 mg/dL (NEG-TRACE) Urine Glucose (UA) Negative mg/dL (NEG) Urine Ketones (Stick) Trace mg/dL (NEG) Urine Blood Negative (NEG) Urine Nitrite Negative (NEG) Urine Bilirubin Small (NEG) Urine Urobilinogen Dipstick 1.0 mg/dL (0.2 mg/dL) Urine Leukocyte Esterase Small (NEG) Urine RBC Occ /HPF (0-2) Urine WBC 1-4 /HPF (0-4) Urine Squamous Epithelial Cells Many /LPF Urine Amorphous Sediment Present /HPF Urine Bacteria Few /HPF (0-FEW) Urine Mucus Marked /LPF Bedside Urine HCG, Qualitative Hcg negative (Negative) Hemoglobin A1c 6.5 % (4.8-5.6) Triglycerides Level 89 mg/dL (0-150) Cholesterol Level 139 mg/dL (0-200) LDL Cholesterol, Calculated 68 mg/dL (0-100) VLDL Cholesterol, Calculated 18 mg/dL (0-40) Non-HDL Cholesterol Calculated 86 mg/dL (0-129) HDL Cholesterol 53 mg/dL (40-60) Cholesterol/HDL Ratio 2.6 Thyroid Stimulating Hormone (TSH) 2.022 uIU/mL (0.358-3.74) Free Thyroxine 1.37 ng/dL (0.76-1.46) Free Triiodothyronine (T3) pg/mL 3.05 pg/mL (2.18-3.98) Test 03/10/20 15:35 03/11/20 12:21 Vancomycin Level Trough 14.4 mcg/mL (10.0-20.0) Vancomycin Last Dose Date 03/10/20 Vancomycin Last Dose Time 0800 Glucose (Fingerstick) 118 mg/dL (70-99) Laboratory Tests Test 03/10/20 15:35 03/11/20 12:21 Vancomycin Level Trough 14.4 mcg/mL (10.0-20.0) Vancomycin Last Dose Date 03/10/20 Vancomycin Last Dose Time 0800 Glucose (Fingerstick) 118 mg/dL (70-99) Microbiology 03/09/20 Urine Culture - Final, Complete 03/09/20 Gram Stain - Final, Resulted 03/09/20 Aerobic Culture - Preliminary, Resulted Medications Current Medications Vancomycin HCl (Vanco Per Pharmacy) 1 each PRN DAILY PRN MC SEE COMMENTS Last administered on 03/11/20at 11:11; Start 03/09/20 at 15:15 Ondansetron HCl (Zofran) 4 mg PRN Q8HRS PRN IV NAUSEA/VOMITING Last administered on 03/10/20at 05:57; Start 03/09/20 at 15:30; Stop 03/10/20 at 15:29; Status DC Morphine Sulfate (Morphine Sulfate) 4 mg PRN Q2HR PRN IV PAIN Last administered on 03/10/20at 14:29; Start 03/09/20 at 15:30; Stop 03/10/20 at 15:29; Status DC Piperacillin Sod/ Tazobactam Sod (Zosyn Per Pharmacy) 1 each PRN DAILY PRN MC SEE COMMENTS; Start 03/09/20 at 15:30 Vancomycin HCl 2 gm/Sodium Chloride 500 ml @ 250 mls/hr 1X ONCE IV Last administered on 03/09/20at 15:43; Start 03/09/20 at 16:00; Stop 03/09/20 at 17:59; Status DC Piperacillin Sod/ Tazobactam Sod 3.375 gm/Sodium Chloride 50 ml @ 100 mls/hr 1X ONCE IV Last administered on 03/09/20at 15:43; Start 03/09/20 at 15:45; Stop 03/09/20 at 16:14; Status DC Piperacillin Sod/ Tazobactam Sod 3.375 gm/Sodium Chloride 50 ml @ 100 mls/hr Q6HRS IV Last administered on 03/11/20at 12:02; Start 03/09/20 at 23:00 Vancomycin HCl 1.5 gm/Sodium Chloride 500 ml @ 250 mls/hr Q8H IV Last administered on 03/11/20at 08:40; Start 03/10/20 at 00:00 Vancomycin HCl (Vancomycin Trough Level) 1 each 1X ONCE MC Last administered on 03/10/20at 15:30; Start 03/10/20 at 15:30; Stop 03/10/20 at 15:31; Status DC Amlodipine Besylate (Norvasc) 10 mg DAILY PO Last administered on 03/11/20at 08:40; Start 03/09/20 at 20:30 Prochlorperazine Edisylate (Compazine) 10 mg PRN Q6HRS PRN IV NAUSEA/VOMITING Last administered on 03/11/20at 13:48; Start 03/10/20 at 10:45 Lactobacillus Rhamnosus (Culturelle) 1 cap BID PO Last administered on 03/11/20at 08:40; Start 03/10/20 at 21:00 Morphine Sulfate (Morphine Sulfate) 2 mg PRN Q2HR PRN IV PAIN; Start 03/10/20 at 20:00 Enalaprilat (Vasotec Inj) 1.25 mg PRN Q6HRS PRN IVP HYPERTENSION; Start 03/11/20 at 09:15 Insulin Human Lispro (HumaLOG) 0-5 UNITS TIDWMEALS SQ ; Start 03/11/20 at 12:00 Dextrose (Dextrose 50%-Water Syringe) 12.5 gm PRN Q15MIN PRN IV SEE COMMENTS; Start 03/11/20 at 10:45 Insulin Glargine (Lantus Syringe) 10 unit QHS SQ ; Start 03/11/20 at 21:00 Lidocaine HCl (Xylocaine 2% Topical 5gm Tube) 1 otto 1X ONCE TP ; Start 03/11/20 at 10:45; Stop 03/11/20 at 10:47; Status DC Active Scripts Active Reported Sprintec (Norgestimate-Ethinyl Estradiol) 1 Each Tablet 1 Tab PO DAILY Vitals/I & O Vital Sign - Last 24 Hours 03/10/20 03/10/20 03/10/20 03/10/20 14:29 15:26 15:54 19:00 Temp 98.4 98.3 98.4 98.3 Pulse 93 96 Resp 20 20 B/P (MAP) 156/105 (122) 173/83 (113) Pulse Ox 95 95 95 98 O2 Delivery Room Air Room Air Room Air Room Air 03/10/20 03/10/20 03/11/20 03/11/20 20:26 23:00 03:00 07:34 Temp 98.2 98.1 98.1 98.2 98.1 98.1 Pulse 84 88 89 Resp 20 20 20 B/P (MAP) 149/72 (97) 170/101 (124) 175/107 (129) Pulse Ox 96 95 96 O2 Delivery Room Air Room Air Room Air Room Air 03/11/20 03/11/20 03/11/20 08:00 08:40 11:24 Temp 97.6 97.6 Pulse 89 102 Resp 20 B/P (MAP) 175/107 186/111 (136) Pulse Ox 95 O2 Delivery Room Air Room Air Intake and Output 03/10/20 03/10/20 03/11/20 15:00 23:00 07:00 Intake Total 320 ml 200 ml 290 ml Balance 320 ml 200 ml 290 ml SUZANNA GREEN MD Mar 11, 2020 13:59
[2020-03-11 15:43] VITALS: BP 172/110
[2020-03-11 19:00] VITALS: BP 195/114
[2020-03-11] MEDS: INSULIN GLARGINE SYRINGE. SQ SCH (21:58)
[2020-03-11 23:06] VITALS: BP 184/113
[2020-03-11] MEDS: ENALAPRILAT 1.25 MG/ML VIAL. IVP PRN (23:40)
[2020-03-11] MEDS: METOCLOPRAMIDE HCL 10 MG/2 ML VIAL. IVP PRN (23:43)
[2020-03-12] VITALS (7 sets, daily range): BP systolic 162–191; BP diastolic 92–121
[2020-03-12] MEDS: VANCOMYCIN 1.5 GM in IV NORMAL SALINE 500ML BAG 500 ML IV SCH ×3 (00:35→18:10)
[2020-03-12] MEDS: PIPERACILLIN/TAZOBACTAM 3.375 GM in IV NORMAL SALINE 50ML 50 ML IV SCH ×3 (05:23→17:16)
--- NOTE | 2020-03-12 06:14 | NUR ---
Pt transferred from room 667 to room 432 via wheelchair. All belongings with pt. Report given to ANASTASIYA Walker.
--- NOTE | 2020-03-12 06:15 | NUR ---
Pt arrived to unit. Vital signs taken and Blood pressure medication administered in accordance to parameters. Pt nauseas and had small amount of emesis, medication administered. Pt transferred from 6S. Report received from Carey LANGFORD.
[2020-03-12] MEDS: METOCLOPRAMIDE HCL 10 MG/2 ML VIAL. IVP PRN (06:30)
[2020-03-12] MEDS: ENALAPRILAT 1.25 MG/ML VIAL. IVP PRN ×2 (06:31→20:15)
[2020-03-12] MEDS: INSULIN LISPRO 300 UNITS/3 ML VIAL. SQ SCH ×3 (08:00→16:54)
[2020-03-12] MEDS ORDERED: LIDOCAINE WITH 8.4% SOD BICARB 3 ML DISP.SYRIN. ONE (08:10)
[2020-03-12] MEDS: LACTOBACILLUS RHAMNOSUS GG 1 CAPSULE. PO SCH ×2 (08:15→20:56)
[2020-03-12] MEDS: amLODIPine BESYLATE 10 MG TABLET PO SCH (08:15)
--- NOTE | 2020-03-12 08:27 | PDOC ---
Infectious Disease Note Subjective Subjective No nausea vomiting diarrhea continues to have some pain on the abdominal wall Vital Sign Vital Signs Vital Signs Date Time Temp Pulse Resp B/P (MAP) Pulse Ox O2 Delivery O2 Flow Rate FiO2 03/12/20 08:15 91 180/120 03/12/20 07:00 98.4 20 95 Room Air 98.4 Physical Exam PHYSICAL EXAM GENERAL: Alert and oriented female, not in any distress. VITAL SIGNS: Stable with a T-max 99.5. Rest of vital signs stable. HEENT: NAD. NECK: Supple. No JVP, no lymphadenopathy. LUNGS: Clear. HEART: S1, S2 regular. ABDOMEN: Soft. No deep tenderness. No organomegaly. SKIN: Abdominal wall has a large area of cellulitis with induration, tenderness and opening with ray pus coming out. Rest of the skin examination is unremarkable. NEUROLOGIC: The patient is alert, awake and appropriate. No focal neurologic deficit. Labs Lab Laboratory Tests Test 03/11/20 12:21 03/11/20 17:06 03/11/20 20:44 03/12/20 07:16 Glucose (Fingerstick) 118 mg/dL (70-99) 130 mg/dL (70-99) 128 mg/dL (70-99) 117 mg/dL (70-99) Micro GRAM STAIN Final Final GRAM POSITIVE COCCI:MANY SQUAMOUS EPI CELL:RARE PMN (WBCs):RARE Unless otherwise specified, Testing Performed by: [address] [address] For Inquires, the Physician may contact the Microbiology department at [phone] AEROBIC CULTURE Preliminary Preliminary MANY GRAM POSITIVE COCCI on 03/11/20 at 1153 FINAL ID= [STAPHYLOCOCCUS AUREUS] Testing Performed by: [address] [address] For Inquires, the Physician may contact the Microbiology department at [phone] STAPHYLOCOCCUS AUREUS Unless otherwise specified, Testing Performed by: [address] [address] For Inquires, the Physician may contact the Microbiology department at [phone] Objective Assessment IMPRESSION: 1. Abdominal wall cellulitis. 2. Abdominal wall abscess, skin and soft tissue infection, most likely to be staph. 3. Low-grade fever. 4. Probable borderline diabetic. 5. Obesity. Plan Plan of Care Continue antibiotics once staph aureus is declared as MSSA then patient can be discharged on p.o. Keflex 500 4 times daily for 10 days Follow-up with me if needed SCOUT FITZGERALD MD Mar 12, 2020 08:27
[2020-03-12] MEDS ORDERED: LIDOCAINE WITH 8.4% SOD BICARB 3 ML DISP.SYRIN. INJ ONE (08:45)
--- NOTE | 2020-03-12 09:06 | NUR ---
SW following. Discussed with RN, pt from home with spouse. Had fluid drained from abdomen this morning. Pt currently on IV Vanc and IV zosyn. SW will continue to follow for any discharge planning needs.
--- NOTE | 2020-03-12 09:15 | PDOC ---
PROGRESS NOTES Chief Complaint Chief Complaint impression Abdominal wall cellulitis, MRSA most likely Abdominal wall abscess, Complex fluid collection within the anterior abdominal wall subcutaneous tissues measures 2.5 x 2.4 x 1.3 cm. There is adjacent subcutaneous edema. Obesity with a BMI of 39 Hyperglycemia, diabetes mellitus confirmed with hemoglobin A1c of 6.5 Intractable nausea which may be gastroparesis in the setting of diabetes MANY GRAM POSITIVE COCCI on 03/11/20 at 1153 FINAL ID= [STAPHYLOCOCCUS AUREUS (MRSA)] Plan: continue with antibiotics Will try Reglan We will consult interventional radiology for the abdominal abscess will follow cultures appreciate ID rehab consultant recommendations. glucose control DVT prophylaxis: Lovenox D/W RN History of Present Illness History of Present Illness Still nauseous, patient does not give history of early satiety but in light of h er hemoglobin A1c most likely she is suffering from gastroparesis. We will do a trial of Reglan still c/o abdominal wall pain Vitals Vitals Vital Signs Date Time Temp Pulse Resp B/P (MAP) Pulse Ox O2 Delivery O2 Flow Rate FiO2 03/12/20 08:39 191/102 (131) 03/12/20 08:15 91 03/12/20 07:00 98.4 20 95 Room Air 98.4 Physical Exam Physical Exam GENERAL: Alert and oriented female, not in any distress. VITAL SIGNS: Stable with a T-max 99.5. Rest of vital signs stable. HEENT: NAD. NECK: Supple. No JVP, no lymphadenopathy. LUNGS: Clear. HEART: S1, S2 regular. ABDOMEN: Soft. No deep tenderness. No organomegaly. SKIN: Abdominal wall has a large area of cellulitis with induration, tenderness and opening with ray pus coming out. Rest of the skin examination is unremarkable. NEUROLOGIC: The patient is alert, awake and appropriate. No focal neurologic deficit. General: Alert, Oriented X3, Cooperative, No acute distress Heart: Regular rate, Normal S1, Normal S2 Lungs: Clear, Wheezing, Crackles Abdomen: Normal bowel sounds, Soft, No tenderness Extremities: No clubbing, No edema Skin: No rashes, No breakdown Labs LABS AEROBIC CULTURE Final Final MANY GRAM POSITIVE COCCI on 03/11/20 at 1153 FINAL ID= [STAPHYLOCOCCUS AUREUS (MRSA)] AZITHROMCIN <=2 S CEFOXITIN SCREEN >4 POS CEFTAROLINE <=0.5 S CIPROFLOXACIN >2 R CLINDAMYCIN 0.5 S DAPTOMYCIN <=0.5 S ERYTHROMYCIN 0.5 S GENTAMYCIN <=4 S LEVOFLOXACIN >4 R LINEZOLID 2 S OXACILLIN >2 R PENICILLIN 2 R RIFAMPIN <=1 S TETRACYCLINE <=4 S TRIMETH/SULFA <=0.5/9.5 S VANCOMYCIN 1 S EXT NON VASC RIGHT History:Reason: abd wall abscess / Spl. Instructions: / History: Comparison: None Technique: Sonographic examination of the anterior abdominal wall right lower quadrant. Findings: Complex fluid collection within the anterior abdominal wall subcutaneous tissues measures 2.5 x 2.4 x 1.3 cm. There is adjacent subcutaneous edema. Impression: 1. Complex fluid collection within the anterior right lower quadrant abdominal wall, concerning for abscess. Electronically signed by: Brayden Long DO (03/10/2020 1:13 PM) [facility] DICTATED and SIGNED BY: BRAYDEN LONG DO DATE: 03/10/20 1313 Micro GRAM STAIN Final Final GRAM POSITIVE COCCI:MANY SQUAMOUS EPI CELL:RARE PMN (WBCs):RARE Unless otherwise specified, Testing Performed by: [address] [address] For Inquires, the Physician may contact the Microbiology department at [phone] AEROBIC CULTURE Preliminary Preliminary MANY GRAM POSITIVE COCCI on 03/11/20 at 1153 FINAL ID= [STAPHYLOCOCCUS AUREUS] Testing Performed by: [address] [id number] For Inquires, the Physician may contact the Microbiology department at [phone] STAPHYLOCOCCUS AUREUS Unless otherwise specified, Testing Performed by: [address] [id number] For Inquires, the Physician may contact the Microbiology Laboratory Tests Test 03/11/20 12:21 03/11/20 17:06 03/11/20 20:44 03/12/20 07:16 Glucose (Fingerstick) 118 mg/dL (70-99) 130 mg/dL (70-99) 128 mg/dL (70-99) 117 mg/dL (70-99) Assessment and Plan Assessmemt and Plan Problems Medical Problems: (1) Abdominal abscess Status: Acute (2) Cellulitis Status: Acute Comment Review of Relevant I have reviewed the following items marjorie (where applicable) has been applied. Labs Laboratory Tests Test 03/10/20 15:35 03/11/20 12:21 03/11/20 17:06 03/11/20 20:44 Vancomycin Level Trough 14.4 mcg/mL (10.0-20.0) Vancomycin Last Dose Date 03/10/20 Vancomycin Last Dose Time 0800 Glucose (Fingerstick) 118 mg/dL (70-99) 130 mg/dL (70-99) 128 mg/dL (70-99) Test 03/12/20 07:16 Glucose (Fingerstick) 117 mg/dL (70-99) Laboratory Tests Test 03/11/20 12:21 03/11/20 17:06 03/11/20 20:44 03/12/20 07:16 Glucose (Fingerstick) 118 mg/dL (70-99) 130 mg/dL (70-99) 128 mg/dL (70-99) 117 mg/dL (70-99) Microbiology 03/09/20 Urine Culture - Final, Complete 03/09/20 Gram Stain - Final, Resulted 03/09/20 Aerobic Culture - Preliminary, Resulted Medications Current Medications Vancomycin HCl (Vanco Per Pharmacy) 1 each PRN DAILY PRN MC SEE COMMENTS Last administered on 03/11/20at 11:11; Start 03/09/20 at 15:15 Ondansetron HCl (Zofran) 4 mg PRN Q8HRS PRN IV NAUSEA/VOMITING Last administered on 03/10/20at 05:57; Start 03/09/20 at 15:30; Stop 03/10/20 at 15:29; Status DC Morphine Sulfate (Morphine Sulfate) 4 mg PRN Q2HR PRN IV PAIN Last administered on 03/10/20at 14:29; Start 03/09/20 at 15:30; Stop 03/10/20 at 15:29; Status DC Piperacillin Sod/ Tazobactam Sod (Zosyn Per Pharmacy) 1 each PRN DAILY PRN MC SEE COMMENTS; Start 03/09/20 at 15:30 Vancomycin HCl 2 gm/Sodium Chloride 500 ml @ 250 mls/hr 1X ONCE IV Last administered on 03/09/20at 15:43; Start 03/09/20 at 16:00; Stop 03/09/20 at 17:59; Status DC Piperacillin Sod/ Tazobactam Sod 3.375 gm/Sodium Chloride 50 ml @ 100 mls/hr 1X ONCE IV Last administered on 03/09/20at 15:43; Start 03/09/20 at 15:45; Stop 03/09/20 at 16:14; Status DC Piperacillin Sod/ Tazobactam Sod 3.375 gm/Sodium Chloride 50 ml @ 100 mls/hr Q6HRS IV Last administered on 03/12/20at 05:23; Start 03/09/20 at 23:00 Vancomycin HCl 1.5 gm/Sodium Chloride 500 ml @ 250 mls/hr Q8H IV Last administered on 03/12/20at 08:16; Start 03/10/20 at 00:00 Vancomycin HCl (Vancomycin Trough Level) 1 each 1X ONCE MC Last administered on 03/10/20at 15:30; Start 03/10/20 at 15:30; Stop 03/10/20 at 15:31; Status DC Amlodipine Besylate (Norvasc) 10 mg DAILY PO Last administered on 03/12/20at 08: 15; Start 03/09/20 at 20:30 Prochlorperazine Edisylate (Compazine) 10 mg PRN Q6HRS PRN IV NAUSEA/VOMITING Last administered on 03/11/20at 13:48; Start 03/10/20 at 10:45; Stop 03/11/20 at 14:00; Status DC Lactobacillus Rhamnosus (Culturelle) 1 cap BID PO Last administered on 03/12/20at 08:15; Start 03/10/20 at 21:00 Morphine Sulfate (Morphine Sulfate) 2 mg PRN Q2HR PRN IV PAIN; Start 03/10/20 at 20:00 Enalaprilat (Vasotec Inj) 1.25 mg PRN Q6HRS PRN IVP HYPERTENSION Last administered on 03/12/20at 06:31; Start 03/11/20 at 09:15 Insulin Human Lispro (HumaLOG) 0-5 UNITS TIDWMEALS SQ ; Start 03/11/20 at 12:00 Dextrose (Dextrose 50%-Water Syringe) 12.5 gm PRN Q15MIN PRN IV SEE COMMENTS; Start 03/11/20 at 10:45 Insulin Glargine (Lantus Syringe) 10 unit QHS SQ Last administered on 03/11/20at 21:58; Start 03/11/20 at 21:00 Lidocaine HCl (Xylocaine 2% Topical 5gm Tube) 1 otto 1X ONCE TP ; Start 03/11/20 at 10:45; Stop 03/11/20 at 10:47; Status DC Metoclopramide HCl (Reglan Vial) 10 mg PRN Q6HRS PRN IVP NAUSEA/VOMITING Last administered on 03/12/20at 06:30; Start 03/11/20 at 14:00 Lidocaine HCl (Buffered Lidocaine 1%) 3 ml STK-MED ONCE .ROUTE ; Start 03/12/20 at 08:10; Stop 03/12/20 at 08:10; Status DC Lidocaine HCl (Buffered Lidocaine 1%) 3 ml 1X ONCE INJ Last administered on 03/12/20at 08:42; Start 03/12/20 at 08:45; Stop 03/12/20 at 08:46; Status DC Active Scripts Active Reported Sprintec (Norgestimate-Ethinyl Estradiol) 1 Each Tablet 1 Tab PO DAILY Vitals/I & O Vital Sign - Last 24 Hours 03/11/20 03/11/20 03/11/20 03/11/20 11:24 15:43 19:00 20:00 Temp 97.6 98.7 97.4 97.6 98.7 97.4 Pulse 102 96 93 Resp 20 18 20 B/P (MAP) 186/111 (136) 172/110 (130) 195/114 (141) Pulse Ox 95 97 95 O2 Delivery Room Air Room Air Room Air Room Air 03/11/20 03/11/20 03/12/20 03/12/20 23:06 23:40 03:08 06:31 Temp 97.3 98.5 97.3 98.5 Pulse 94 94 96 89 Resp 18 18 B/P (MAP) 184/113 (136) 184/113 176/121 (139) 169/112 Pulse Ox 96 96 O2 Delivery Room Air Room Air 03/12/20 03/12/20 03/12/20 07:00 08:15 08:39 Temp 98.4 98.4 Pulse 91 91 Resp 20 B/P (MAP) 180/120 (140) 180/120 191/102 (131) Pulse Ox 95 O2 Delivery Room Air Intake and Output 03/11/20 03/11/20 03/12/20 15:00 23:00 07:00 Intake Total 200 ml 300 ml Balance 200 ml 300 ml LINWOOD SPRINGER MD Mar 12, 2020 09:15
[2020-03-12 11:46] LABS: ALBUMIN 2.8 g/dL (3.4-5.0); ALBUMIN/GLOBULIN RATIO 0.7 (1.0-1.7); CALCIUM 8.5 mg/dL (8.5-10.1); CREATININE 0.9 mg/dL (0.6-1.0); GFR 71.7; POTASSIUM 3.7 mmol/L (3.5-5.1); TOTAL BILIRUBIN 0.3 mg/dL (0.2-1.0); TOTAL PROTEIN 6.6 g/dL (6.4-8.2)
[2020-03-12 13:48] LABS: BASO % 0 % (0-3); EOS # 0.1 x10^3/uL (0.0-0.7); EOS % 1 % (0-3); HEMATOCRIT 37.8 % (36.0-47.0); HEMOGLOBIN 12.6 g/dL (12.0-15.5); LYMPH % 11 % (24-48); MEAN CORPUSCULAR HEMOGLOBIN 25 pg (25-35); MEAN CORPUSCULAR HGB CONC 33 g/dL (31-37); MEAN CORPUSCULAR VOLUME 76 fL (79-100); MONO # 0.5 x10^3/uL (0.0-1.1); MONO % 5 % (0-9); NEUT # 7.4 x10^3/uL (1.8-7.7); NEUT % 82 % (31-73); PLATELET COUNT 331 x10^3/uL (140-400); RED BLOOD COUNT 4.99 x10^6/uL (3.50-5.40); RED CELL DISTRIBUTION WIDTH 15.4 % (11.5-14.5)
--- NOTE | 2020-03-12 15:32 | NUR ---
Dr. Ruelas notified of culture results from Dr. Ovalles at [facility]. Telephone orders received.
[2020-03-12] MEDS: VANCOMYCIN PER PHARMACY MC PRN (15:43)
--- NOTE | 2020-03-12 15:45 | NUR ---
Zyvox 600mg PO BID called to pt's pharmacy, [facility]. [phone]. Pharmacy stated Zyvox is covered by insurance.
--- NOTE | 2020-03-12 15:50 | NUR ---
Dr. العلي notified of pt ok to d/c home today from ID standpoint and Ztirciaox called in to pt's pharmacy. No telephone orders received.
--- NOTE | 2020-03-12 17:52 | NUR ---
Pt. states she wants to take a shower after IV abx is finished, asking if abd drsg can be changed after her shower.
[2020-03-12] MEDS: INSULIN GLARGINE SYRINGE. SQ SCH (21:01)
--- NOTE | 2020-03-12 21:19 | PDOC3 ---
Discharge Summary Date of Admission: Mar 09, 2020 Date of Discharge: Mar 12, 2020 Follow-Up: 3-5 days Admitting Diagnosis comment: discharge dx Chief Complaint impression Abdominal wall cellulitis, MRSA Abdominal wall abscess, Complex fluid collection within the anterior abdominal wall subcutaneous tissues measures 2.5 x 2.4 x 1.3 cm. There is adjacent subcutaneous edema. Obesity with a BMI of 39 Hyperglycemia, diabetes mellitus confirmed with hemoglobin A1c of 6.5 Intractable nausea which may be gastroparesis in the setting of diabetes resolved MANY GRAM POSITIVE COCCI on 03/11/20 at 1153 FINAL ID= [STAPHYLOCOCCUS AUREUS (MRSA)] Plan: continue with antibiotics Will try Reglan We will consult interventional radiology for the abdominal abscess will follow cultures appreciate ID medical consultant recommendations. glucose control DVT prophylaxis: Lovenox D/W RN ok to d/c home on zyvox 600mg po bid x 10 days 03/12 D/C PLANNING 35 MIN History of Present Illness History of Present Illness Still nauseous, patient does not give history of early satiety but in light of her hemoglobin A1c most likely she is suffering from gastroparesis. We will do a trial of Reglan still c/o abdominal wall pain Vitals Vitals Vital Signs Date Time Temp Pulse Resp B/P (MAP) Pulse Ox O2 Delivery O2 Flow Rate FiO2 03/12/20 08:39 191/102 (131) 03/12/20 08:15 91 03/12/20 07:00 98.4 20 95 Room Air 98.4 Physical Exam Physical Exam GENERAL: Alert and oriented female, not in any distress. VITAL SIGNS: Stable with a T-max 99.5. Rest of vital signs stable. HEENT: NAD. NECK: Supple. No JVP, no lymphadenopathy. LUNGS: Clear. HEART: S1, S2 regular. ABDOMEN: Soft. No deep tenderness. No organomegaly. SKIN: Abdominal wall has a large area of cellulitis with induration, tenderness and opening with ray pus coming out. Rest of the skin examination is unremarkable. NEUROLOGIC: The patient is alert, awake and appropriate. No focal neurologic deficit. General: Alert, Oriented X3, Cooperative, No acute distress Heart: Regular rate, Normal S1, Normal S2 Lungs: Clear, Wheezing, Crackles Abdomen: Normal bowel sounds, Soft, No tenderness Extremities: No clubbing, No edema Skin: No rashes, No breakdown Labs LABS AEROBIC CULTURE Final Final MANY GRAM POSITIVE COCCI on 03/11/20 at 1153 FINAL ID= [STAPHYLOCOCCUS AUREUS (MRSA)] AZITHROMCIN <=2 S CEFOXITIN SCREEN >4 POS CEFTAROLINE <=0.5 S CIPROFLOXACIN >2 R CLINDAMYCIN 0.5 S DAPTOMYCIN <=0.5 S ERYTHROMYCIN 0.5 S GENTAMYCIN <=4 S LEVOFLOXACIN >4 R LINEZOLID 2 S OXACILLIN >2 R PENICILLIN 2 R RIFAMPIN <=1 S TETRACYCLINE <=4 S TRIMETH/SULFA <=0.5/9.5 S VANCOMYCIN 1 S EXT NON VASC RIGHT History:Reason: abd wall abscess / Spl. Instructions: / History: Comparison: None Technique: Sonographic examination of the anterior abdominal wall right lower quadrant. Findings: Complex fluid collection within the anterior abdominal wall subcutaneous tissues measures 2.5 x 2.4 x 1.3 cm. There is adjacent subcutaneous edema. Impression: 1. Complex fluid collection within the anterior right lower quadrant abdominal wall, concerning for abscess. Electronically signed by: Brayden Long DO (03/10/2020 1:13 PM) [facility] DICTATED and SIGNED BY: BRAYDEN LONG DO DATE: 03/10/20 1313 Micro GRAM STAIN Final Final GRAM POSITIVE COCCI:MANY SQUAMOUS EPI CELL:RARE PMN (WBCs):RARE Unless otherwise specified, Testing Performed by: [address] [id number] For Inquires, the Physician may contact the Microbiology department at [phone] AEROBIC CULTURE Preliminary Preliminary MANY GRAM POSITIVE COCCI on 03/11/20 at 1153 FINAL ID= [STAPHYLOCOCCUS AUREUS] Testing Performed by: [address] [id number] For Inquires, the Physician may contact the Microbiology department at [phone] STAPHYLOCOCCUS AUREUS Unless otherwise specified, Testing Performed by: [address] [id number] For Inquires, the Physician may contact the Microbiology Laboratory Tests Test 03/11/20 12:21 03/11/20 17:06 03/11/20 20:44 03/12/20 07:16 Glucose (Fingerstick) 118 mg/dL (70-99) 130 mg/dL (70-99) 128 mg/dL (70-99) 117 mg/dL (70-99) FINAL DIAGNOSIS Problems Medical Problems: (1) Abdominal abscess Status: Acute (2) Cellulitis Status: Acute Brief Hospital Course Ms. Millan is a 34 old [sex] who presented with [ ABDOMINAL WALL ABSCESS ] CONDITION AT DISCHARGE: Improved Discharge Medications Current Medications Vancomycin HCl (Vanco Per Pharmacy) 1 each PRN DAILY PRN MC SEE COMMENTS Last administered on 03/12/20 15:43; Start 03/09/20 at 15:15 Ondansetron HCl (Zofran) 4 mg PRN Q8HRS PRN IV NAUSEA/VOMITING Last administered on 03/10/20 05:57; Start 03/09/20 at 15:30; Stop 03/10/20 at 15:29; Status DC Morphine Sulfate (Morphine Sulfate) 4 mg PRN Q2HR PRN IV PAIN Last administered on 03/10/20 14:29; Start 03/09/20 at 15:30; Stop 03/10/20 at 15:29; Status DC Piperacillin Sod/ Tazobactam Sod (Zosyn Per Pharmacy) 1 each PRN DAILY PRN MC SEE COMMENTS; Start 03/09/20 at 15:30 Vancomycin HCl 2 gm/Sodium Chloride 500 ml @ 250 mls/hr 1X ONCE IV Last administered on 03/09/20 15:43; Start 03/09/20 at 16:00; Stop 03/09/20 at 17:59; Status DC Piperacillin Sod/ Tazobactam Sod 3.375 gm/Sodium Chloride 50 ml @ 100 mls/hr 1X ONCE IV Last administered on 03/09/20at 15:43; Start 03/09/20 at 15:45; Stop 03/09/20 at 16:14; Status DC Piperacillin Sod/ Tazobactam Sod 3.375 gm/Sodium Chloride 50 ml @ 100 mls/hr Q6HRS IV Last administered on 03/12/20at 17:16; Start 03/09/20 at 23:00 Vancomycin HCl 1.5 gm/Sodium Chloride 500 ml @ 250 mls/hr Q8H IV Last administered on 03/12/20at 18:10; Start 03/10/20 at 00:00 Vancomycin HCl (Vancomycin Trough Level) 1 each 1X ONCE MC Last administered on 03/10/20at 15:30; Start 03/10/20 at 15:30; Stop 03/10/20 at 15:31; Status DC Amlodipine Besylate (Norvasc) 10 mg DAILY PO Last administered on 03/12/20 08:15; Start 03/09/20 at 20:30 Prochlorperazine Edisylate (Compazine) 10 mg PRN Q6HRS PRN IV NAUSEA/VOMITING Last administered on 03/11/20at 13:48; Start 03/10/20 at 10:45; Stop 03/11/20 at 14:00; Status DC Lactobacillus Rhamnosus (Culturelle) 1 cap BID PO Last administered on 03/12/20at 20:56; Start 03/10/20 at 21:00 Morphine Sulfate (Morphine Sulfate) 2 mg PRN Q2HR PRN IV PAIN; Start 03/10/20 at 20:00 Enalaprilat (Vasotec Inj) 1.25 mg PRN Q6HRS PRN IVP HYPERTENSION Last administered on 03/12/20at 20:15; Start 03/11/20 at 09:15 Insulin Human Lispro (HumaLOG) 0-5 UNITS TIDWMEALS SQ ; Start 03/11/20 at 12:00 Dextrose (Dextrose 50%-Water Syringe) 12.5 gm PRN Q15MIN PRN IV SEE COMMENTS; Start 03/11/20 at 10:45 Insulin Glargine (Lantus Syringe) 10 unit QHS SQ Last administered on 03/12/20at 21:01; Start 03/11/20 at 21:00 Lidocaine HCl (Xylocaine 2% Topical 5gm Tube) 1 otto 1X ONCE TP ; Start 03/11/20 at 10:45; Stop 03/11/20 at 10:47; Status DC Metoclopramide HCl (Reglan Vial) 10 mg PRN Q6HRS PRN IVP NAUSEA/VOMITING Last administered on 03/12/20at 06:30; Start 03/11/20 at 14:00 Lidocaine HCl (Buffered Lidocaine 1%) 3 ml STK-MED ONCE .ROUTE ; Start 03/12/20 at 08:10; Stop 03/12/20 at 08:10; Status DC Lidocaine HCl (Buffered Lidocaine 1%) 3 ml 1X ONCE INJ Last administered on 03/12/20at 08:42; Start 03/12/20 at 08:45; Stop 03/12/20 at 08:46; Status DC Active Scripts Active Reported Sprintec (Norgestimate-Ethinyl Estradiol) 1 Each Tablet 1 Tab PO DAILY Vital Signs Vital Signs Date Time Temp Pulse Resp B/P (MAP) Pulse Ox O2 Delivery O2 Flow Rate FiO2 03/12/20 20:15 89 166/102 03/12/20 19:00 99.1 18 98 99.1 03/12/20 15:00 Room Air Labs Laboratory Tests Test 03/11/20 12:21 03/11/20 17:06 03/11/20 20:44 03/12/20 07:16 Glucose (Fingerstick) 118 mg/dL (70-99) 130 mg/dL (70-99) 128 mg/dL (70-99) 117 mg/dL (70-99) Test 03/12/20 11:00 03/12/20 11:33 03/12/20 13:25 03/12/20 16:42 Sodium Level 140 mmol/L (136-145) Potassium Level 3.7 mmol/L (3.5-5.1) Chloride Level 102 mmol/L (98-107) Carbon Dioxide Level 25 mmol/L (21-32) Anion Gap 13 (6-14) Blood Urea Nitrogen 9 mg/dL (7-20) Creatinine 0.9 mg/dL (0.6-1.0) Estimated GFR (Cockcroft-Gault) 71.7 BUN/Creatinine Ratio 10 (6-20) Glucose Level 120 mg/dL (70-99) Calcium Level 8.5 mg/dL (8.5-10.1) Total Bilirubin 0.3 mg/dL (0.2-1.0) Aspartate Amino Transf (AST/SGOT) 32 U/L (15-37) Alanine Aminotransferase (ALT/SGPT) 24 U/L (14-59) Alkaline Phosphatase 147 U/L (46-116) Total Protein 6.6 g/dL (6.4-8.2) Albumin 2.8 g/dL (3.4-5.0) Albumin/Globulin Ratio 0.7 (1.0-1.7) Glucose (Fingerstick) 117 mg/dL (70-99) 135 mg/dL (70-99) White Blood Count 9.0 x10^3/uL (4.0-11.0) Red Blood Count 4.99 x10^6/uL (3.50-5.40) Hemoglobin 12.6 g/dL (12.0-15.5) Hematocrit 37.8 % (36.0-47.0) Mean Corpuscular Volume 76 fL (79-100) Mean Corpuscular Hemoglobin 25 pg (25-35) Mean Corpuscular Hemoglobin Concent 33 g/dL (31-37) Red Cell Distribution Width 15.4 % (11.5-14.5) Platelet Count 331 x10^3/uL (140-400) Neutrophils (%) (Auto) 82 % (31-73) Lymphocytes (%) (Auto) 11 % (24-48) Monocytes (%) (Auto) 5 % (0-9) Eosinophils (%) (Auto) 1 % (0-3) Basophils (%) (Auto) 0 % (0-3) Neutrophils # (Auto) 7.4 x10^3/uL (1.8-7.7) Lymphocytes # (Auto) 1.0 x10^3/uL (1.0-4.8) Monocytes # (Auto) 0.5 x10^3/uL (0.0-1.1) Eosinophils # (Auto) 0.1 x10^3/uL (0.0-0.7) Basophils # (Auto) 0.0 x10^3/uL (0.0-0.2) Test 03/12/20 20:52 Glucose (Fingerstick) 119 mg/dL (70-99) Laboratory Tests Test 03/12/20 07:16 03/12/20 11:00 03/12/20 11:33 03/12/20 13:25 Glucose (Fingerstick) 117 mg/dL (70-99) 117 mg/dL (70-99) Sodium Level 140 mmol/L (136-145) Potassium Level 3.7 mmol/L (3.5-5.1) Chloride Level 102 mmol/L (98-107) Carbon Dioxide Level 25 mmol/L (21-32) Anion Gap 13 (6-14) Blood Urea Nitrogen 9 mg/dL (7-20) Creatinine 0.9 mg/dL (0.6-1.0) Estimated GFR (Cockcroft-Gault) 71.7 BUN/Creatinine Ratio 10 (6-20) Glucose Level 120 mg/dL (70-99) Calcium Level 8.5 mg/dL (8.5-10.1) Total Bilirubin 0.3 mg/dL (0.2-1.0) Aspartate Amino Transf (AST/SGOT) 32 U/L (15-37) Alanine Aminotransferase (ALT/SGPT) 24 U/L (14-59) Alkaline Phosphatase 147 U/L (46-116) Total Protein 6.6 g/dL (6.4-8.2) Albumin 2.8 g/dL (3.4-5.0) Albumin/Globulin Ratio 0.7 (1.0-1.7) White Blood Count 9.0 x10^3/uL (4.0-11.0) Red Blood Count 4.99 x10^6/uL (3.50-5.40) Hemoglobin 12.6 g/dL (12.0-15.5) Hematocrit 37.8 % (36.0-47.0) Mean Corpuscular Volume 76 fL (79-100) Mean Corpuscular Hemoglobin 25 pg (25-35) Mean Corpuscular Hemoglobin Concent 33 g/dL (31-37) Red Cell Distribution Width 15.4 % (11.5-14.5) Platelet Count 331 x10^3/uL (140-400) Neutrophils (%) (Auto) 82 % (31-73) Lymphocytes (%) (Auto) 11 % (24-48) Monocytes (%) (Auto) 5 % (0-9) Eosinophils (%) (Auto) 1 % (0-3) Basophils (%) (Auto) 0 % (0-3) Neutrophils # (Auto) 7.4 x10^3/uL (1.8-7.7) Lymphocytes # (Auto) 1.0 x10^3/uL (1.0-4.8) Monocytes # (Auto) 0.5 x10^3/uL (0.0-1.1) Eosinophils # (Auto) 0.1 x10^3/uL (0.0-0.7) Basophils # (Auto) 0.0 x10^3/uL (0.0-0.2) Test 03/12/20 16:42 03/12/20 20:52 Glucose (Fingerstick) 135 mg/dL (70-99) 119 mg/dL (70-99) Allergies Allergies Coded Allergies Type Severity Reaction Last Updated Verified No Known Drug Allergies 03/09/20 No Disposition/Orders: D/C to Home Justicifation of Admission Dx: Justifications for Admission: Justification of Admission Dx: Yes Chronic Renal Failure: Severe Infection Sepsis: Infection Cellulitis: Cellulitis LINWOOD SPRINGER MD Mar 12, 2020 21:19
[2020-03-12] MEDS ORDERED: INSU100V8 SQ (21:22)
[2020-03-12] MEDS ORDERED: LACT1CAP19 PO (21:22)
[2020-03-12] MEDS ORDERED: AMLO10TA8 PO (21:22)
[2020-03-12] MEDS ORDERED: LINE600T12 PO (21:22)
--- NOTE | 2020-03-12 21:23 | DISCH ---
DISCHARGE INSTRUCTIONS Condition on Discharge Condition on Discharge: Stable Activity After Discharge Activity Instructions for Disc: Activity as tolerated Lifting Instructions after Dis: No heavy lifting, No pulling or pushing Driving Instructions after Dis: Do not drive Weight Bearing Status after Di: As tolerated Diet after Discharge Diet after Discharge: Diabetic No Calorie Level Liquid Texture: Thin Liquid Checks after Discharge Checks after discharge: Check blood press - daily Contacting the DRJaylene after DC Call your doctor for: If your condition worsens Warfarin Follow-Up Warfarin Follow UP: SEE PCP IN 3-5 DAYS LINWOOD SPRINGER MD Mar 12, 2020 21:23
--- NOTE | 2020-03-12 21:35 | NUR ---
Dr. العلي ordered to discharge patient. Patient is agreeable to go home tonight. Prescription for Zyvox was called in to patient's pharmacy earlier today. Dressing change was done to right lower abdomen with instructions to patient. Patient verbalized understanding of information given to her and she called her to pick her up.
--- NOTE | 2020-03-12 22:45 | NUR ---
Patient discharged to ER exit ambulatory. Discharge instructions given to patient. Questions were answered.
== END 2020-03-12 22:45 | disposition home or self-care (01) | DRG 603 ==
LOC: ER 14:47 → 4 NORTH 15:15 → 6 SOUTH 16:54 → 4 NORTH 03-12 06:15
PROVIDERS: ADMIT Internal Medicine; ATTEND Internal Medicine
DX: L02.211 Cutaneous abscess of abdominal wall (principal); L03.311 Cellulitis of abdominal wall; E66.9 Obesity, unspecified; B95.62 Methicillin resistant Staphylococcus aureus infection as the cause of diseases classified elsewhere; E11.65 Type 2 diabetes mellitus with hyperglycemia; K31.84 Gastroparesis; E11.43 Type 2 diabetes mellitus with diabetic autonomic (poly)neuropathy; Z68.39 Body mass index [BMI] 39.0-39.9, adult; Z83.3 Family history of diabetes mellitus
CPT/HCPCS: 10005; 36415; 76881; 80048; 80053; 80061; 80202; 81001; 81025; 82962; 83036; 84439; 84443; 84481; 85025; 87070; 87086; 96365; 96368; C1892; J0780; J1815; J2270; J2405; J2543; J2765; J3370; J3490; J7040; 99285-25; G0378